=== PATIENT | female | born 1930 | race Two or more races ===

== ENCOUNTER 2019-11-27 11:37 | Emergency (ER) | payer OTHER ==
[~2019-11-27] VITALS: Ht 149.9 cm; Wt 57.6 kg
== END 2019-11-27 17:42 | disposition home or self-care (01) ==
LOC: ER 11:37
DX: S70.02XA Contusion of left hip, initial encounter (principal); S60.222A Contusion of left hand, initial encounter; M51.36 Other intervertebral disc degeneration, lumbar region; W01.198A Fall on same level from slipping, tripping and stumbling with subsequent striking against other object, initial encounter; Y93.89 Activity, other specified; Y92.098 Other place in other non-institutional residence as the place of occurrence of the external cause; Y99.8 Other external cause status